=== PATIENT | male | born 1965 | race Caucasian/White ===

== ENCOUNTER 2017-10-27 13:49 | Day surgery (SDC) | payer BC ==
[~2017-10-27] VITALS: Ht 177.8 cm; Wt 85.8 kg
[~2017-10-27 13:49] MED LIST: CYAN500; GLYC2; IBUP600 PO; OXYACE5T PO
== END 2017-10-27 15:30 | disposition home or self-care (01) ==
LOC: ORSCSDS 13:49
PROVIDERS: Surgery
PROC: 0DJD8ZZ Inspection of Lower Intestinal Tract, Via Natural or Artificial Opening Endoscopic (ICD-10-PCS; principal; 2017-10-27 14:45)
DX: Z12.11 Encounter for screening for malignant neoplasm of colon (principal); K57.30 Diverticulosis of large intestine without perforation or abscess without bleeding; Z80.0 Family history of malignant neoplasm of digestive organs; I10 Essential (primary) hypertension; F41.9 Anxiety disorder, unspecified

== ENCOUNTER → 2020-02-18 | Outpatient (CLI) | payer BC | END | disposition home or self-care (01) | LOC: LAB 19:25 → LAB SHORT 19:25 | DX: R30.0 Dysuria (principal) | CPT/HCPCS: 87086 ==

== ENCOUNTER → 2020-06-16 | Outpatient (CLI) | payer BC, OTHER ==
[2020-06-17 08:11] LABS: HBSAG SCREEN Negative (Negative); HCV ANTIBODY <0.1 (0.0-0.9)
== END ==
LOC: LAB EV 18:28 → LAB SHORT 18:28
PROVIDERS: Physician Assistant
DX: Z11.59 Encounter for screening for other viral diseases (principal); R74.8 Abnormal levels of other serum enzymes
CPT/HCPCS: 86803; 87340